=== PATIENT | male | born 1980 | race Caucasian/White ===

== ENCOUNTER 2016-12-22 09:35 | Emergency (ER) | payer MEDICAID, MEDICARE ==
[2016-12-22 09:46] VITALS: BP 145/81
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
== END 2016-12-22 11:12 | disposition home or self-care (01) ==
LOC: UCEAST 09:35
DX: T23.201A Burn of second degree of right hand, unspecified site, initial encounter (principal); T31.0 Burns involving less than 10% of body surface; R56.9 Unspecified convulsions; Z98.1 Arthrodesis status; Z88.0 Allergy status to penicillin; E66.01 Morbid (severe) obesity due to excess calories; F17.210 Nicotine dependence, cigarettes, uncomplicated
CPT/HCPCS: 99212; G0463

== ENCOUNTER 2016-12-23 07:14 | Emergency (ER) | payer SELFPAY ==
[2016-12-23 07:26] VITALS: BP 120/68
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
== END 2016-12-23 07:56 | disposition home or self-care (01) ==
LOC: UCEAST 07:14
DX: T23.261A Burn of second degree of back of right hand, initial encounter (principal); X10.1XXA Contact with hot food, initial encounter; Y92.9 Unspecified place or not applicable
CPT/HCPCS: 99211; G0463

== ENCOUNTER 2019-05-24 17:57 | Emergency (ER) | payer MEDICARE, MEDICAID ==
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
--- OUTSIDE RECORDS SUMMARY | 2019-05-24 19:10 | XMS REPORT | Continuity of Care Document ---
:1980 External Reference #:[id number] Author Name Carlos Peña M.D. Address [address] [facility] [address] [place] [address] Care Team Providers Name Role Phone HCP given Care Team Information Freight Sorter Unavailable [place] - Care Team Information Freight Sorter [phone] Neurology [facility] - Sleep Disorder Care Team Information Freight Sorter [phone] [facility] - Care Team Information Freight Sorter [phone] Orthopaedic Surgery Problems Active Problems Provider Date Neck pain Carlos Peña M.D. Onset: 07/30/2015 Chronic pain due to injury Carlos Peña M.D. Onset: 07/30/2015 Brachial neuritis Carlos Peña M.D. Onset: 07/30/2015 Obstructive sleep apnea syndrome Carlos Peña M.D. Onset: 04/27/2018 Generalized anxiety disorder Carlos Peña M.D. Onset: 04/27/2018 Other seizures Carlos Peña M.D. Onset: 04/27/2018 Dysthymia Carlos Peña M.D. Onset: 04/27/2018 Opioid dependence Carlos Peña M.D. Onset: 10/24/2018 Tobacco user Carlos Peña M.D. Onset: 12/12/2018 Social History Type Date Description Comments Sex Unknown Tobacco Use Reviewed: 12/12/18 current cigarette smoker 1ppd Smoking Status Reviewed: 12/12/18 current cigarette smoker 1ppd ETOH Use Denies alcohol use Recreational Drug Use Current Drug User Exercise Type/Frequency Exercises sporadically Sun Exposure Does not use sunscreen Seat Belt/Car Seat Seat Belt Use - Yes Allergies, Adverse Reactions, Alerts Active Allergies Reaction Severity Comments Date Penicillins Rash as A Child 06/30/2015 Ceclor Hives 06/30/2015 Medications Active Medications SIG Qnty Indications Ordering Date Provider Buprenorphine 1/2 film 30units F11.20 Carlos Peña, 03/27/2019 Hydrochloride/Naloxon dissolved in M.D. e Hydrochloride mouth every 8-2mg morning; may Film repeat after 4 or more hrs if needed for pain; prescriber# [id number] M25.561 Gabapentin 2-3 capsules by 300caps M54.12 Carlos Peña, 03/27/2019 300mg Capsules mouth 4x/day as M.D. needed for neck and right arm pain Levetiracetam 1 tablet by mouth 50tabs G40.89 Unknown 06/21/2017 750mg Tablets every morning and 1 tablet every evening Naproxen Take One Tablet By 60tabs Carlos Peña, 03/01/2016 500mg Tablets Mouth Twice A Day M.D. With Food For Pain Paroxetine HCL Take One Tablet By 30tabs F41.1 Carlos Peña, 10/05/2015 20mg Tablets Mouth Every Day M.D. F34.1 Hydroxyzine HCL Take One Tablet By 120tabs F41.1 Carlos Peña, 2015 25mg Mouth Every 4 Hours M.D. Tablets as Needed For Mild To Moderate Anxiety History Medications Buprenorphine place one-half 15units F11.20 Casey, 10/24/2018 - Hydrochloride/Naloxone film under the Zack Gonzalez 03/27/2019 Hydrochloride tongue every 8-2mg Film morning; prescriber# [id number]; rx due 01/31/19 Immunizations CPT Code Status Date Vaccine Lot # [id number] Given 12/12/2018 Influenza Virus Vaccine, Quadrivalent, Split, [id number] Preservative Free [id number] Given 12/07/2017 Influenza Virus Vaccine, Quadrivalent, Split, Preservative Free [id number] Given 01/23/2017 Influenza Virus Vaccine, Quadrivalent, Split, [id number] Preservative Free 27313 Given 06/20/2016 Adacel or Boostrix, TDaP [id number] Vital Signs Date Vital Result Comment 03/27/2019 2:15pm BP Systolic 122 mmHg BP Diastolic 70 mmHg Height 71 inches 5'11" w/shoes Weight 305.00 lb w/shoes BMI (Body Mass Index) 42.5 kg/m2 02/18/2019 2:44pm BP Systolic 132 mmHg BP Diastolic 82 mmHg Height 71 inches 5'11" Weight 320.00 lb per pt BMI (Body Mass Index) 44.6 kg/m2 Results Test Acquired Date Facility Test Result H/L Range Note Blood Culture 03/20/2019 [facility]. Blood Culture NO GROWTH: 1, 2 LABORATORY Aerobic FINAL <SEE [phone] NOTE> Blood Culture Anaerobic NO GROWTH: FINAL <SEE NOTE> 3 Blood Culture 03/20/2019 [facility]. Blood Culture NO GROWTH: 4 LABORATORY Aerobic FINAL <SEE [phone] NOTE> Blood Culture Anaerobic NO GROWTH: FINAL <SEE NOTE> 5 Comprehensive 03/20/2019 [facility]. Glucose 84 mg/dL Normal 74-106 Metabolic Panel LABORATORY [phone] BUN 23 mg/dL High 7-18 Creatinine 1.9 mg/dL High 0.6-1.3 Glom Filtration Rate, Estimate 43 mL/min >60 If 52 mL/min >60 6 BUN/Creat 12.1 ratio Sodium 136 mmol/L Normal 136-145 Potassium 3.6 mmol/L Normal 3.5-5.1 Chloride 102 mmol/L Normal 98-107 Carbon Dioxide 29 mmol/L Normal 21-32 Anion Gap 5 mEq/L Low 8-16 Calcium 8.9 mg/dL Normal 8.5-10.1 Total Protein 8.2 g/dL Normal 6.4-8.2 Albumin 4.1 g/dL Normal 3.4-5.0 Globulin 4.1 g/dL Normal 1.9-4.3 Alb/Glob 1.0 ratio Bilirubin,Total 0.7 mg/dL Normal 0.2-1.0 Sgot/Ast 16 U/L Normal 15-37 SGPT/Alt 14 U/L Normal 12-78 Alkaline Phosphatase 55 U/L Normal 45-117 Laboratory 03/20/2019 [facility]. C-Reactive 86.4 High <3.0 test finding LABORATORY Protein,Quant mg/L [phone] CBS 03/20/2019 [facility]. White Blood Count 10.3 Normal 3.4- 10.5 W/Automated LABORATORY K/uL Diff [phone] Red Blood Count 5.19 M/uL Normal 4.20-5.80 Hemoglobin 15.3 gm/dL Normal 12.8-17.0 Hematocrit 44.2 % Normal 38.0-48.0 Mean Cell Volume 85.2 fl Normal 80.0-96.0 Mean Corpuscular HGB 29.5 pg Normal 27.0-33.0 Mean Corpuscular HGB Conc 34.6 g/dL Normal 31.7-36.0 Platelet Count 155 K/uL Normal 155-360 Red Cell Distri Width SD 42.5 fl Normal 36-51 Red Cell Distri Width %CV 13.8 % Normal 11.6-15.8 Mean Platelet Volume 10.0 fl Normal 6.6-10.6 Neut% 68.2 % Normal 33.0-73.0 Lymph % 20.9 % Normal 20.0-42.0 Mer[place]ether % 8.9 % Normal 0.0-10.0 Eo% 1.0 % Normal 0.0-6.6 Bas% 0.5 % Normal 0.0-1.1 Immature Grans 0.5 % Normal 0.0-5.0 NRBC % 0.0 /100WBC < 10/ 100 WBC Neut# 7.00 K/uL Normal 1.8-7.0 Lymph # 2.14 K/uL Normal 1.0-4.0 Mer[place]ether # 0.91 K/uL High 0.0-0.8 Eos # 0.10 K/uL Normal 0.0-0.5 Baso # 0.05 K/uL Normal 0.0-0.1 Immature Grans Absolute 0.05 K/uL NRBC # 0.00 K/uL Laboratory test 03/20/2019 [facility]. Sedimentation Rate 37 mm /hr High 0-15 7 finding LABORATORY [phone] 1 L HAND SWELLING, PAIN, INFECTED? 2 NO GROWTH: FINAL REPORT 3 NO GROWTH: FINAL REPORT 4 NO GROWTH: FINAL REPORT 5 NO GROWTH: FINAL REPORT 6 Note: Persistent reduction for 3 months or more in an eGFR <60 mL/min/1.73 m2 defines CKD. Patients with eGFR values >/=60 mL/min/1.73 m2 may also have CKD if evidence of persistent proteinuria is present. The original MDRD equation for estimated GFR is not valid for patients less than 18 years of age. Additional information may be found at [email or web address]. 7 03/20/19 1058: ESR previously reported as: 37 mm/hr Amended result called to: LIANA Cat - 03/20/19 at 1059 Method: Sediplast Modified [place] Procedures Description No Information Available Medical Devices Description No Information Available Encounters Type Date Location Provider Dx Diagnosis Office Visit 03/27/2019 Main Office Carlos Peña F11.20 Opioid dependence, 2:15p [email or web address] uncomplicated M25.561 Pain in right knee M54.12 Radiculopathy, cervical region M54.2 Cervicalgia Z68.41 Body mass index (BMI) 40.0-44.9, adult Office Visit 02/18/2019 2:30p Main Office Doyle Glory L, M25.561 Pain in right MD knee M25.461 Effusion, right knee E66.9 Obesity, unspecified Z68.41 Body mass index (BMI) 40.0-44.9, adult Office Visit 01/21/2019 12:55p Main Office Casey F11.20 Opioid dependenceCarlos M.D. uncomplicated Office Visit 12/12/2018 1:45p Main Office Norman Peña1.20 Opioid dependenceCarlos M.D. uncomplicated R22.31 Localized swelling, mass and lump, right upper limb R22.32 Localized swelling, mass and lump, left upper limb Z23 Encounter for immunization F17.210 Nicotine dependence, cigarettes, uncomplicated G40.89 Other seizures Office Visit 11/07/2018 1:30p Main Office Norman Peña1.20 Opioid dependenceCarlos M.D. uncomplicated Office Visit 10/24/2018 1:30p Main Office Norman Peña1.20 Opioid dependenceCarlos M.D. uncomplicated F34.1 Dysthymic disorder Z68.41 Body mass index (BMI) 40.0-44.9, adult Assessments Date Code Description Provider 03/27/2019 [email or web address] Opioid dependence, uncomplicated Carlos Peña M.D. 03/27/2019 M25.561 Pain in right knee Carlos Pñea M.D. 03/27/2019 M54.12 Radiculopathy, cervical region Carlos Peña M.D. 03/27/2019 M54.2 Cervicalgia Carlos Peña M.D. 03/27/2019 Z68.41 Body mass index (BMI) 40.0-44.9, adult Carlos Peña M.D. 02/18/2019 M25.561 Pain in right knee Glory Kwon MD 02/18/2019 M25.461 Effusion, right knee Glory Kwon MD 02/18/2019 E66.9 Obesity, unspecified Glory Kwon MD 02/18/2019 Z68.41 Body mass index (BMI) 40.0-44.9, adult Glory Kwon MD 01/21/2019 F11.20 Opioid dependence, uncomplicated Carlos Peña M.D. 12/12/2018 F11.20 Opioid dependence, uncomplicated Carlos Peña M.D. 12/12/2018 R22.31 Localized swelling, mass and lump, right Carlos Peña M.D. upper limb 12/12/2018 R22.32 Localized swelling, mass and lump, left Carlos Peña M.D. upper limb 12/12/2018 Z23 Encounter for immunization Carlos Peña M.D. 12/12/2018 F17.210 Nicotine dependence, cigarettes, Carlos Peña M.D. uncomplicated 12/12/2018 G40.89 Other seizures Carlos Peña M.D. 11/07/2018 F11.20 Opioid dependence, uncomplicated Carlos Peña M.D. 10/24/2018 F11.20 Opioid dependence, uncomplicated Carlos Peña M.D. 10/24/2018 F34.1 Dysthymic disorder Carlos Peña M.D. 10/24/2018 Z68.41 Body mass index (BMI) 40.0-44.9, adult Carlos Peña M.D. Plan of Treatment Future Appointment(s):05/27/2019 1:15 pm - Carlos Peña M.D. at Main [facility]/27/2019 - Carlos Peña M.D.F11.20 Opioid dependence, uncomplicatedNew Medication:Buprenorphine Hydrochloride/Naloxone Hydrochloride 8 -2 mg - 1/2 film dissolved in mouth every morning; may repeat after 4 or more hrs if needed for pain; prescriber# [id number] up:RTO 2 pxmlcyK32.561 Pain in right kneeNew Medication:Buprenorphine Hydrochloride/Naloxone Hydrochloride 8 -2 mg - 1/2 film dissolved in mouth every morning; may repeat after 4 or more hrs if needed for pain; prescriber# [id number]:sec to OA w/ recent flare , settling down. He may continue using buprenorphine bid for this. Discussed option of steroid injection wc he declined. RTO prn for this.M54.12 Radiculopathy, cervical regionNew Medication:Gabapentin 300 mg - 2-3 capsules by mouth 4x/day as needed for neck and right arm painComments:He reports failing numerous meds for controlling this pain previously incl Pregabalin and many others. Continue gabapentin wc does help but qwill allow him to inc dose to max of 900mg/dose max 3000mg/day.M54.2 IxjmqktplorF95.41 Body mass index (BMI ) 40.0-44.9, adult Functional Status Description No Information Available Mental Status Description No Information Available Referrals Description No Information Available
[2019-05-24 19:35] VITALS: BP 122/88
== END 2019-05-24 19:55 | disposition home or self-care (01) ==
LOC: ED 17:57
DX: Z04.1 Encounter for examination and observation following transport accident (principal); T40.1X1A Poisoning by heroin, accidental (unintentional), initial encounter; Y92.9 Unspecified place or not applicable; Z88.0 Allergy status to penicillin; Z79.899 Other long term (current) drug therapy; F17.210 Nicotine dependence, cigarettes, uncomplicated; F32.9 Major depressive disorder, single episode, unspecified
CPT/HCPCS: 99284